=== PATIENT | female | born 1990 | race Hispanic/Latino ===

== ENCOUNTER → 2016-12-24 | Outpatient (REF) | payer OTHER ==
[~2016-12-24] MED LIST: CPR500T PO; CYCL10TA45 PO; HYDR-3702 PO; IBP200T PO; NAPR220C11 PO; NORG1TAB6 PO
== END ==
LOC: LAB 16:20
PROVIDERS: ATTEND Obstetrics & Gynecology
DX: N91.1 Secondary amenorrhea (principal)
CPT/HCPCS: 81025